=== PATIENT | female | born 1985 | race Caucasian/White ===

== ENCOUNTER 2023-02-16 06:27 | Inpatient (IN) | payer OTHER, SELFPAY ==
[2023-02-16] VITALS (111 sets, daily range): BP systolic 75–156; BP diastolic 43–130; PULSE 51–179; RESP 16–18; TEMP 36.4–36.8; O2SAT 82–100; BMI 30.9
--- OUTSIDE RECORDS SUMMARY | 2023-02-16 06:31 | XMS_ITS | Clinical Summary ---
Author Name Unknown Address [address] [place] [address] Phone Organization [facility] Address [address] [place] [address] Phone Care Team Providers Care Research Statistician Name Role Phone MOHIT SILVER, HARRY GONZALEZ [facility] [phone] Reason for Visit and Chief Complaint NO SHOW Problems Includes: Problems addressed during this encounter and other active Problems All Visits Onset Date Resolved Date Provider Condition S tatus Adult Attention Deficit Hyperactivity Disorder 06/16/2016 HARRY OLIVEIRA MD Active Plan of Treatment No Plan of Treatment Recorded Assessments Includes: Assessments from this encounter No Assessments Recorded Medical Equipment - Implanted Devices Includes: Current Devices No Medical Equipment Recorded Medications Includes: Medications discussed during this encounter and other current Medications Current Medications (continue as prescribed) Lexapro 10MG Oral Tablet 10/06/2018 Provider: MET TARAN RUEDA MD Diagnosis: Generalized anxi ety disorder as directed -- 1/2 tab a day for 5 days then 1 tab a day thereafter traZODone HCl 50MG Oral Tablet 10/06/2018 Provider: HARRY RUEDA MD Diagnosis: Psychophysiologi c insomnia
--- OUTSIDE RECORDS SUMMARY | 2023-02-16 06:31 | XMS_ITS | Clinical Summary ---
Author Name Unknown Address [address] [place] [address] Phone Organization [facility] Address [address] [place] [address] Phone Care Team Providers Care Senior Net C Developer Name Role Phone MOHIT SILVER, HARRY GONZALEZ [facility] [phone] Reason for Visit and Chief Complaint NO [...] HCl 50MG Oral Tablet 10/06/2018 Provider: HARRY UREDA MD Diagnosis: Psychophysiologi c insomnia
--- OUTSIDE RECORDS SUMMARY | 2023-02-16 06:31 | XMS_ITS | Clinical Summary ---
Author Name Unknown Address [address] [place] [address] [facility] Address [address] [place] [address] Phone Care Team Providers Care Visual Display Manager Name Role Phone MOHIT SILVER, HARRY GONZALEZ [facility] [phone] Reason for Visit and Chief Complaint * PHONE CALL Problems Includes: Problems addressed during this encounter [...]
--- OUTSIDE RECORDS SUMMARY | 2023-02-16 06:31 | XMS_ITS | Clinical Summary ---
Author Name Unknown Address [address] [place] [address] Phone Organization [facility] Address [address] [place] [address] Phone Care Team Providers Care Sock Knitting Machine Operator Name Role Phone MOHIT SILVER, HARRY GONZALEZ [facility] [phone] Reason for Visit and Chief Complaint NEW PATIENT VISIT Problems Includes: Problems addressed during this encounter and other active Problems Current Visit Onset Date Resolved Date Provider Glen renteria Status Adult Attention Deficit Hyperactivity Disorder 06/16/2016 HARRY OLIVEIRA MD Active Plan of Treatment Education and Decision Aids were provided during visit for: Patient education about medi cation --- I educated patient on medication(s) and diagnosis. I reviewed the risks, benefits and side effects of patient's medications Last Documented On 9 3:08PM ; [facility] Discussed calming techniques such as breathing exercises and other relaxation techniques, given guided meditation rosas Last Documented On 9 6:21PM ; [facility] Discussed good sleep hygiene habits Last Documented On 9 5:18PM ; [facility] Assessments Includes: Assessments from this encounter Findings - Major depression, recurrent - Last Documented On
--- OUTSIDE RECORDS SUMMARY | 2023-02-16 06:31 | XMS_ITS | Clinical Summary ---
Author Name Unknown Address [address] [place] [address] Phone Organization [facility] Address [address] [place] [address] Phone Care Team Providers Care Bomb Technician Name Role Phone MOHIT SILVER, HARRY GONZALEZ [facility] [phone] Reason for Visit and Chief Complaint NO [...]
--- OUTSIDE RECORDS SUMMARY | 2023-02-16 06:31 | XMS_ITS ---
Author Name Unknown Address [address] [place] [address] Phone Organization [facility] Address [address] [place] [address] Phone Care Team Providers Care Maintenance And Engineering Manager Name Role Phone MOHIT SILVER, HARRY GONZALEZ Unavailable [phone] Reason for Referral Date Encounter Description Provider Reason for Referral 06/16/16 NEW PATIENT VISIT HARRY RUEDA MD Request Consultation By Mental Health Counselor - --referred for counseling --Emily Frey --for stress mgt Problems Includes: Active, inactive, and resolved Problems All Visits Onset Date Resolved Date Provider Condition S tatus Adult Attention Deficit Hyperactivity Disorder 06/16/2016 HARRY OLIVEIRA MD Active Plan of Treatment Education and Decision Aids were provided during visit for: Patient education about medi cation --- I educated patient on medication(s) and diagnosis. I reviewed the risks, benefits and side effects of patient's medications Last Documented On 9 3:08PM ; [facility] Discussed calming techniques such as breathing exercises and other relaxation techniques, given guided meditation rosas Last Documented On 9 6:21PM ; [facility] Discussed good sleep hygiene habits Last Documented On 9 5:18PM ; [facility]
[2023-02-16] MEDS: LACTATED RINGERS 1,000 ML 125 ML IV CONT ×2 (07:10→09:27)
[2023-02-16] MEDS: OXYTOCIN 30 UNITS/NS 500 ML 30 UNITS/500 ML BAG IV CONT (07:10)
--- NOTE | 2023-02-16 07:19 | LDADM ---
This patient, Iveth Rome, was admitted to Labor/Delivery/Recovery 102 on 02/16/23 at 06:27. Plans for labor, pain management and were discussed with patient. Patient/family oriented to hospital policies and general routines including ID bracelet, bed and alarms, visiting hours, pain management, procedures, bathroom and other care routines, personal items, smoking policy, room service/diet and guest tray routines, infant security routines, and visiting hours. Patient/Family are encouraged to report perceived risks to care and to ask questions if they do not understand what they are told or what they should do. See OBIX for further documentation.
[2023-02-16 07:21] LABS: Basophils Absolute Auto 0.1 K/mm3 (0.0-0.1); Basophils Percent Auto 0.7 % (0.2-1.2); Eosinophils Absolute Auto 0.1 K/mm3 (0-0.3); Eosinophils Percent Auto 1.4 % (0-4.4); Hematocrit 39.4 % (37.0-47.0); Hemoglobin 12.9 g/dL (12.0-15.0); Lymphocytes Absolute Auto 1.74 K/mm3 (0.9-3.2); Lymphocytes Percent Auto 17.7 % (18.3-44.2); Mean Corpuscular HGB Conc 32.7 g/dl (32-36); Mean Corpuscular Hemoglobin 26.8 pg (26-34); Mean Corpuscular Volume 81.9 fl (80-100); Mean Platelet Volume 11.6 fl (7.4-10.4); Monocytes Absolute Auto 0.5 K/mm3 (0.1-0.6); Monocytes Percent Auto 4.8 % (2.6-8.5); Neutrophils Absolute Auto 7.2 K/mm3 (1.3-6.7); Neutrophils Percent Auto 73.4 % (45.5-73.1); Platelet Count Result 206 k/mm3 (150-375); Red Blood Count 4.81 M/mm3 (4.2-5.4); Red Cell Distribution Width 14.1 % (11.5-14.5); White Blood Count 9.8 K/mm3 (4.5-10.0)
--- NOTE | 2023-02-16 08:37 | WPDOBADMIT ---
Obstetrics - Admit Note Admission Note: record reviewed. Additions to the history and/or subsequent changes in the physical findings follow. 37 y/o at 40 2/7 weeks here for induction of labor. She has had a prior for malpresentation, and has had 3 subsequent VBACs. She strongly desires a . GBS neg. otherwise complicated by bee sting of the foot with extensive swelling of the foot. AVSS NST reactive TOCO: irregular contractions ABD soft, nontender, gravid, vertex EXT nontender Cervix 2-3/80/-2. AROM with meconium-tinged fluid. IUPC placed. Vertex. A: IUP at 40 2/7 weeks with favorable cervix, strongly desiring TOLAC. P: We have had many conversations regarding risks / benefits / alternatives to TOLAC/. We reviewed this again today. In particular, we reviewed risks of uterine rupture. She strongly desires to continue with induction of labor / TOLAC. Peds aware of thin mec.
--- NOTE | 2023-02-16 08:59 | P.PNAN_ITS ---
Anes - Eval Pre Procedure Procedure: labor epidural Date/Time: 02/16/23 08:59 Surgeon: castro Preop Diagnosis: pain during labor Pre Op Diagnosis: IOL Patient Data Age: 37 Gender: F Height: 1.75 m Weight: 95 kg Last Vital Signs Temp 36.4 C 02/16/23 06:54 Pulse 64 02/16/23 08:46 BP 115/95 H 02/16/23 08:46 Pulse Ox 100 02/16/23 08:54 O2 Del Method Room Air 02/16/23 07:17 Allergies Allergy/AdvReac Type Severity Reaction Status Date / Time No Known Allergies Allergy Unverified 05/24/17 13:55 Home Medications Medication Instructions Recorded Confirmed Type prenat.vits,saul,cmv-kfrj-hycgh 1 tablet 01/28/23 History Laboratory Tests 02/16/23 06:54 WBC 9.8 K/mm3 (4.5-10.0) RBC 4.81 M/mm3 (4.2-5.4) Hgb 12.9 g/dL (12.0-15.0) Hct 39.4 % (37.0-47.0) MCV 81.9 fl (80-100) MCH 26.8 pg (26-34) MCHC 32.7 g/dl (32-36) RDW 14.1 % (11.5-14.5) Plt Count 206 k/mm3 (150-375) MPV 11.6 H fl (7.4-10.4) Immature Gran % (Auto) 2.0 H % (0-0.5) Neut % (Auto) 73.4 H % (45.5-73.1) Lymph % (Auto) 17.7 L % (18.3-44.2) [place] % (Auto) 4.8 % (2.6-8.5) Eos % (Auto) 1.4 % (0-4.4) Baso % (Auto) 0.7 % (0.2-1.2) Lymph # (Auto) 1.74 K/mm3 (0.9-3.2) [place] # (Auto) 0.5 K/mm3 (0.1-0.6) Eos # (Auto) 0.1 K/mm3 (0-0.3) Baso # (Auto) 0.1 K/mm3 (0.0-0.1) Abs Immat Gran (auto) 0.20 H K/mm3 (0.00-0.031) Absolute Neuts (auto) 7.2 H K/mm3 (1.3-6.7) Absolute Nucleated RBC 0.0 K/mm3 (0.0-0.012) Nucleated RBC % 0.0 % (0.0-0.2) RPR Pending Blood Type B Positive Antibody Screen Negative Patient hx anesthesia problems: none Family hx anesthesia problems: none Results Review: All pre-operative results and documents have been reviewed as part of the pre- operative evaluation. PMFSH Family History Family History Grandparent Asthma Family history of emphysema Social History Social History Smoking status: Never smoker Alcohol intake: current Substance use: never Lack of Transportation: No Lack of Food: Never True Current Housing: Decline to Answer Concerned About Future Housing: No Difficulty Paying Gas/Electric Bills: No Difficulty Paying for Meds: No Currently Unemployed: No Education: Bachelor's Degree Difficulty w/ Childcare or Family Care: No Spiritual care concerns: No Exam Day of Procedure 02/16/23 08:59 Patient weight: normal Heart: regular rate and rhythm Lungs: normal air movement Airway: Mallampati scale class II Neurological: alert and oriented
[2023-02-16] MEDS: SODIUM CHLORIDE 0.9% IV 300 ML 600 ML I-UTERINE (11:21)
[2023-02-16] MEDS: OXYTOCIN 30 UNITS/NS 500 ML 30 UNITS/500 ML BAG 125 UNITS IV CONT (12:44)
--- NOTE | 2023-02-16 12:45 | PM.OBPRVD ---
OB - Vaginal Delivery Note Procedure Delivery date: 02/18/23 Events: Previous Delivery (strongly desires trial of labor) Induction method: Per Pitocin Protocol Delivery augmentation: Rupture of Membranes Delivery monitor: External FHT, External Uterine and Internal Uterine Route of delivery: Episiotomy description: None Laceration Description: Perineal - 4th Degree Delivery repair: vicryl (2-0 and 3-0) Specimen: Yes (cord blood) Quantitative Blood Loss (ml): 220 Anesthesia type: Epidural Disposition: PACU Complications: None Narrative: 37 y/o at 40 2/7 weeks gestation who presented for induction of labor. She strongly desired TOLAC. Oxytocin was administered intravenously. Amniotomy was performed with return of thinly meconium stained fluid. She received an epidural for pain control. Her labor progressed and her cervix dilated completely. She pushed with good effort and delivered the infant's head to the perineum, followed by the body. The nose and mouth were bulb suctioned. After a delay, the cord was clamped and cut. The infant was handed off the field. Cord blood was collected. The placenta delivered spontaneously and was grossly normal in appearance. The usual 3 vessel cord was noted. A fourth degree midline perineal laceration was sustained. The rectal mucosa was reapproximated with a running subcuticular stitch of 3 0 Vicryl. The anal sphincter was reapproximated using figure of eight sutures of 2-0 Vicryl. Finally, the vaginal epithelium and perineum were reapproximated in the usual layered fashion using 3-0 Vicryl. Excellent hemostasis resulted as did excellent reapproximation of the normal anatomy. Needle and instrument counts were correct. The patient was taken to recovery room in stable condition. The infant went to the nursery in stable condition. I was present and scrubbed for the entire delivery. Little Neck Baby Date of : 02/16/23 Time of : 12:08 Weeks of gestation at delivery: 40 Infant gender: Male Weight (pounds): 8 Weight (ounces): 11 presentation: vertex position: Left Occiput Anterior Placenta delivery description: Spontaneous and Normal Configuration Cord Vessel Description: 3 Vessels and Delayed Cord Clamping score one minute: 8 score five minutes: 9
[2023-02-16 13:17] LABS: Rapid Plasma Reagin Non-Reactive (NonReactive)
[2023-02-16] MEDS: IBUPROFEN 600 MG TABLET PO ×2 (14:29→19:59)
[2023-02-16] MEDS: HYDROcodone/acetaminophen (*CRX) 5-325 MG TABLET 1 TAB PO ×3 (15:00→23:32)
[2023-02-17 04:41] LABS: Hematocrit 33.4 % (37.0-47.0); Hemoglobin 10.7 g/dL (12.0-15.0)
[2023-02-17] MEDS: HYDROcodone/acetaminophen (*CRX) 5-325 MG TABLET 1 TAB PO ×2 (04:49→08:37)
[2023-02-17 05:06] VITALS: BP 112/60; PULSE 61; TEMP 36.6; O2SAT 98
[2023-02-17] MEDS: MULTIVIT/MIN/PREN/FOL AC/IRON TABLET 1 TAB PO (07:29)
[2023-02-17] MEDS: DOCUSATE SODIUM 100 MG CAPSULE PO ×2 (07:30→16:21)
[2023-02-17 08:40] VITALS: BP 116/63; PULSE 68; RESP 18; TEMP 36.8; O2SAT 100
--- NOTE | 2023-02-17 10:06 | WPDANLDPN2 ---
Anes-Prog Note L&D Date/Time: 02/17/23 10:06 Comfortable throughout: labor and delivery Neuraxial method: epidural Epidural/Spinal procedure site: clean & non-tender Neuro status: Neuro function grossly intact. Cardiovascular status: normal Respiratory status: normal Airway patency: baseline Mental status: baseline Post-Op hydration status: normal Vital Signs: Last Vital Signs Temp 36.8 C 02/17/23 08:40 Pulse 68 02/17/23 08:40 Resp 18 02/17/23 08:40 BP 116/63 02/17/23 08:40 Pulse Ox 100 02/17/23 08:40 O2 Del Method Room Air 02/17/23 08:40 Pain score (VAS): 3/10 I/O: Intake & Output 02/16/23 02/17/23 02/17/23 23:59 07:59 15:59 Intake Total 240 Output Total 150 1000 Balance -150 -1000 240 Post-procedural complaints: pruritis moderate, treatment effective Patient feedback: Patient satisfied with anesthetic care.
[2023-02-17] MEDS: IBUPROFEN 600 MG TABLET PO ×2 (10:47→16:26)
--- NOTE | 2023-02-17 11:10 | PM.OBPNVD ---
OB - PN: Subj Subjective Date/time seen: 02/17/23 11:10 Narrative: Uterine fundus tender, but firm. Says she has a hard time getting up and moving due to the pain. OB - PN: Obj Data Labs 02/17/23 03:28 Labs: Laboratory Results - last 24 hr 02/16/23 02/17/23 06:54 03:28 Hgb 10.7 L Hct 33.4 L RPR Non-reactive OB - PN A/P Plan Comments: A: PPD#1, doing well. P: Routine care. Exam Psych: Other: AVSS ABD soft, nontender, fundus firm EXT nontender
--- NOTE | 2023-02-17 11:12 | P.DS_ITS ---
DS: Admitting Diagnosis Discharge Date 02/18/23 Admitting Diagnosis IUP at 40 weeks Prior , desires TOLAC DS: Discharge Diagnosis Discharge Diagnosis (1) , delivered: Code(s): O34.219 - Maternal care for unspecified type scar from previous delivery Status: Acute OB - DS: Summary OB Procedures : None OB Procedures Intrapartum: OB Procedures: : None Peripartum Data Laceration Description: Perineal - 4th Degree Episiotomy description: None Time Spent with Patient Time attestation: Total time spent providing and/or coordinating discharge services: DS: Data Data Completed and Pending Labs on day of discharge: Labs from last 24 hours 02/17/23 02/16/23 03:28 06:54 Hgb 10.7 L Hct 33.4 L RPR Non-reactive Discharge Plan Discharge Attending physician on discharge: Venu Payne Discharging Clinician: Venu Payne Patient Disposition: Home, Self-Care Activity: pelvic rest Diet: regular Discharge Instructions: Call or return if temperature above 100.4? F, increased abdominal pain, increased vaginal bleeding or any new problems. Stand Alone Forms: General Discharge Information Follow-up/Referrals: Venu Payne MD [Physician] - 6 Weeks Discharge Medications: New ibuprofen 600 mg tablet 600 mg PO Q6H PRN (Reason: cramps) Qty: 30 0RF oxycodone-acetaminophen [Percocet] 5-325 mg tablet 1 tablet PO Q4H PRN (Reason: pain) Qty: 30 0RF lorazepam [Ativan] 1 mg tablet 1 mg PO BID PRN (Reason: anxiety) Qty: 30 0RF docusate sodium [Colace] 100 mg capsule 100 mg PO BID Qty: 60 1RF Continued #2 Tablet 1 tablet PO DAILY Date of admission: 02/16/23 06:27 Primary Care Provider: PHYSICIAN,FIRE HOSE CURER Admitting Provider: Venu Payne Attending physician on admission: Venu Payne Condition: Stable
[2023-02-17] MEDS: oxyCODONE/ACETAMINOPHEN (*CRX) 5-325 MG TABLET 1 TABLET PO (12:00)
[2023-02-17] MEDS: LORazepam (*CRX) 1 MG TABLET PO (14:30)
[2023-02-17] MEDS: oxyCODONE/ACETAMINOPHEN (*CRX) 10-325 MG TABLET 1 TAB PO ×2 (16:21→22:00)
[2023-02-17 21:45] VITALS: BP 118/69; PULSE 67; RESP 16; TEMP 36.5; O2SAT 99
[2023-02-18] MEDS: IBUPROFEN 600 MG TABLET PO (00:12)
[2023-02-18] MEDS: LORazepam (*CRX) 1 MG TABLET PO (07:45)
[2023-02-18] MEDS: DOCUSATE SODIUM 100 MG CAPSULE PO (07:45)
[2023-02-18] MEDS: MULTIVIT/MIN/PREN/FOL AC/IRON TABLET 1 TAB PO (07:45)
--- NOTE | 2023-02-18 12:08 | PM.OBPNVD ---
OB - PN: Subj Subjective Date/time seen: 02/18/23 12:08 Narrative: Pain OK. Abdominal pain resolved with Ativan. Says mood good today. Would like to go home. OB - PN: Obj Data Labs 02/17/23 03:28 OB - PN A/P Plan Comments: A: PPD#2, doing well. P: Home to f/u 6 weeks. Exam Psych: Other: AVSS ABD soft, nontender, fundus firm EXT nontender
[2023-02-18 12:13] VITALS: BP 110/62; PULSE 88; RESP 14; TEMP 36.6; O2SAT 100
[2023-02-21 11:07] VITALS: BP 121/60; PULSE 66; RESP 16; TEMP 36.5; O2SAT 99
== END 2023-02-18 12:25 | disposition home or self-care (01) | DRG 768 ==
LOC: ANHLDR 06:30 → ANHOB2 16:49
PROVIDERS: Admitting Provider Obstetrics & Gynecology; Visit Provider Obstetrics & Gynecology
DX: O34.219 Maternal care for unspecified type scar from previous cesarean delivery (principal); Z37.0 Single live birth; O70.3 Fourth degree perineal laceration during delivery; O77.0 Labor and delivery complicated by meconium in amniotic fluid; Z3A.40 40 weeks gestation of pregnancy
CPT/HCPCS: 36415; 85014; 85018; 85025; 86592; 86850; 86900; 86901; A9270; J2590; J2795; J7030; J7120